=== PATIENT | male | born 1965 | race Caucasian/White ===

== ENCOUNTER 2022-07-09 14:42 | Emergency (ER) | payer BC | END 2022-07-09 16:47 | disposition home or self-care (01) | LOC: CSHERS 14:42 | DX: S00.03XA Contusion of scalp, initial encounter (principal); I10 Essential (primary) hypertension; F17.290 Nicotine dependence, other tobacco product, uncomplicated; W18.2XXA Fall in (into) shower or empty bathtub, initial encounter | CPT/HCPCS: 70450 ==